=== PATIENT | male | born 1945 | race Caucasian/White ===

== ENCOUNTER 2019-07-25 13:36 | Emergency (ER) | payer BC, MEDICARE ==
[2019-07-25 14:01] VITALS: BP 142/73
[2019-07-25 14:12] LABS: Influenza A Molecular POSITIVE (Negative)
--- NOTE | 2019-07-25 14:18 | UC ---
General HPI - HPI Summary HPI Summary: Patient states yesterday he began with flu like symptoms. stiff, achy, runny nose cough. No CP or SOB. No N/V/D. No abdominal pain. No urinary s/s. No rash. Decrease appetite but good liquid intake. Dizzy but walking and driving without issue. Independent of ADLs. lives alone. Did get a flu shot meds: reviewed - History of Current Complaint Chief Complaint: UCGeneralIllness Stated Complaint: FLU SXS Time Seen by Provider: 07/25/19 13:51 Pain Intensity: 7 - Allergy/Home Medications Allergies/Adverse Reactions: Allergies Allergy/AdvReac Type Severity Reaction Status Date / Time No Known Allergies Allergy Verified 07/25/19 13:55 Home Medications: Home Medications Atorvastatin* [Lipitor*] 40 mg PO DAILY 07/25/19 [History Confirmed 07/25/19] Etodolac 2 tab PO BID 07/25/19 [History Confirmed 07/25/19] Oseltamivir CAP* [Tamiflu CAP*] 75 mg PO BID #10 cap 07/25/19 [Rx] PMH/Surg Hx/FS Hx/Imm Hx Previously Healthy: Yes - Surgical History Surgical History: Yes Surgery Procedure, Year, and Place: prostate. hernia x2 - Social History Alcohol Use: None Substance Use Type: None Smoking Status (MU): Never Smoked Tobacco Review of Systems All Other Systems Reviewed And Are Negative: Yes Constitutional: Positive: Fever, Chills ENT: Positive: Sore Throat, Sinus Congestion Respiratory: Positive: Cough Physical Exam Triage Information Reviewed: Yes Appearance: Well-Appearing Vital Signs: Initial Vital Signs Temp 99.7 F 07/25/19 13:56 Pulse 103 07/25/19 13:56 Resp 18 07/25/19 13:56 BP 142/73 07/25/19 13:56 Pulse Ox 97 07/25/19 13:56 ENT: Positive: Pharyngeal erythema, Nasal congestion, TMs normal Neck: Positive: Supple, Nontender Respiratory: Positive: Lungs clear, Normal breath sounds Cardiovascular: Positive: RRR, Other: - soft systolic murmur Course/Dx - Course Course Of Treatment: This is a 73 yr old with flu like symptoms Positive flu A nontoxic appearing no respiratory distress Recommend starting tamiflu as prescribed Rest,fluids and tylenol as directed as needed for pain/fever If symptoms persist or worsen, recommend follow up with PCP or return to urgent care - Diagnoses Provider Diagnosis: Influenza A Discharge ED - Sign-Out/Discharge Documenting (check all that apply): Patient Departure All imaging exams completed and their final reports reviewed: No Studies - Discharge Plan Condition: Fair Disposition: HOME Prescriptions: Oseltamivir CAP* [Tamiflu CAP*] 75 mg PO BID #10 cap Patient Education Materials: Influenza (ED) Referrals: Margaret Plaza MD [Primary Care Provider] - Additional Instructions: Recommend starting tamiflu as prescribed Rest,fluids and tylenol as directed as needed for pain/fever If symptoms persist or worsen, recommend follow up with PCP or return to urgent care - Billing Disposition and Condition Condition: FAIR Disposition: Home
== END 2019-07-25 14:23 | disposition home or self-care (01) ==
LOC: UCCORT 13:36
DX: J10.1 Influenza due to other identified influenza virus with other respiratory manifestations (principal)
CPT/HCPCS: 99202; G0463

== ENCOUNTER 2019-12-08 09:42 | Inpatient (IN) ==
[~2019-12-08 09:42] MED LIST: Buffered Lidocaine 1% SYRIN 1 ml INTRADERM ONE; Lactated Ringers 1000 ml BAG 1,000 ML IV SCH; Lidocaine 2% PF 5 ML VIAL ONE
[2019-12-08] MEDS ORDERED: ceFAZolin 2 GM PREMIX 2 GM/50 ML BAG ONE (10:19)
[2019-12-08] MEDS ORDERED: Buffered Lidocaine 1% SYRIN 1 ml INTRADERM ONE (10:19)
[2019-12-08] MEDS ORDERED: Midazolam 2 mg/2 ml VIAL 1 mg/ml 2 ml VIAL (2 mg) ONE ×2 (11:16→11:17)
[2019-12-08] MEDS ORDERED: Bupivacaine 0.5% SDV PF 30ML VIAL ONE (11:50)
[2019-12-08] MEDS ORDERED: Ondansetron 4 mg VIAL 2 MG/ML 2 ml VIAL ONE (12:12)
[2019-12-08] MEDS ORDERED: Dexamethasone IV 4 MG/ML VIAL 1 ml VIAL ONE (12:12)
[2019-12-08] MEDS ORDERED: EPHEDrine (Pressors) 50 MG/ML VIAL ONE (13:10)
[2019-12-08] MEDS ORDERED: Sterile Water for Inj 10 ML ONE (13:10)
[2019-12-08] MEDS ORDERED: Ondansetron 4 mg VIAL 2 MG/ML 2 ml VIAL IV PRN (13:44)
[2019-12-08] MEDS ORDERED: Lactulose 30 ml UDC PO PRN (13:44)
[2019-12-08] MEDS ORDERED: oxyCODONE/Acetamin 5/325 mg TAB PO PRN (13:44)
[2019-12-08] MEDS ORDERED: Ondansetron ODT 4 mg TAB 4 MG TAB PO PRN (13:44)
[2019-12-08] MEDS ORDERED: diPHENhydraMINE 25 mg TAB PO PRN (13:44)
[2019-12-08] MEDS ORDERED: diPHENhydraMINE IV 50 MG/ML 1 ml VIAL (BENADRYL) IV PRN (13:44)
[2019-12-08] MEDS ORDERED: Magnesium Hydroxide LIQ 30 ML UDC PO PRN (13:44)
[2019-12-08] MEDS ORDERED: Naloxone 0.4 mg VIAL 0.4 mg/ml 1 ml VIAL IV PRN ×2 (15:55)
[2019-12-08] MEDS ORDERED: fentaNYL 100 mcg/2 ml 50 MCG/ML VIAL IV PRN (15:55)
[2019-12-08] MEDS ORDERED: oxyCODONE/Acetamin 5/325 mg TAB ONE (16:18)
[2019-12-08] MEDS: Lactated Ringers 1000 ml BAG 1,000 ML IV SCH (16:53)
[2019-12-08] MEDS ORDERED: NS 0.9% 1000 ML/HR X 1 BAG (TOTAL 1000 ML) IV ONE (19:30)
[2019-12-08] MEDS: ceFAZolin 1 GM ADVAN 1 GM in NS 0.9% 50 ML 50 ML IVPB SCH (21:00)
[2019-12-08] MEDS: Magnesium Hydroxide LIQ 30 ML UDC PO SCH (21:00)
[2019-12-08] MEDS: oxyCODONE/Acetamin 5/325 mg TAB PO PRN (22:34)
[2019-12-09] MEDS: oxyCODONE/Acetamin 5/325 mg TAB PO PRN ×3 (02:10→12:40)
[2019-12-09] MEDS: ceFAZolin 1 GM ADVAN 1 GM in NS 0.9% 50 ML 50 ML IVPB SCH ×2 (03:53→11:31)
[2019-12-09] MEDS: Lactated Ringers 1000 ml BAG 1,000 ML IV SCH (03:53)
[2019-12-09 05:12] LABS: Hematocrit 38 % (42-52); Hemoglobin 12.8 g/dL (14.0-18.0); Mean Platelet Volume 7.4 fL (7.4-10.4); Platelet Count 171 10^3/uL (150-450)
[2019-12-09 05:29] LABS: BUN/Creatinine Ratio 26.3 (8-20); Calcium 7.9 mg/dL (8.6-10.3); EGFR African American 121.6 (>60); EGFR Non-African American 100.5 (>60)
[2019-12-09] MEDS: Magnesium Hydroxide LIQ 30 ML UDC PO SCH (08:15)
[2019-12-09] MEDS ORDERED: Vitamin THERAPEUTIC TAB PO SCH (09:00)
[2019-12-09 13:04] VITALS: BP 115/64
== END 2019-12-09 14:00 | disposition home or self-care (01) | DRG 470 ==
LOC: AA 09:42 → SSU 13:44
PROVIDERS: ADMIT Orthopaedic Surgery Adult Reconstructive Orthopaedic Surgery; ATTEND Orthopaedic Surgery Adult Reconstructive Orthopaedic Surgery

== ENCOUNTER 2020-03-01 10:20 | Observation (INO) ==
[~2020-03-01 10:20] MED LIST changes: -Lidocaine 2% PF 5 ML VIAL ONE
[2020-03-01] MEDS ORDERED: ceFAZolin 2 GM PREMIX 2 GM/50 ML BAG ONE (10:47)
[2020-03-01] MEDS ORDERED: fentaNYL 100 mcg/2 ml 50 MCG/ML VIAL ONE (11:02)
[2020-03-01] MEDS ORDERED: Phenylephrine 40 mcg/mL 10mL (400mcg) SYRINGE ONE ×2 (14:03→15:32)
[2020-03-01] MEDS ORDERED: Ondansetron ODT 4 mg TAB 4 MG TAB PO PRN (14:28)
[2020-03-01] MEDS ORDERED: Lactulose 30 ml UDC PO PRN (14:28)
[2020-03-01] MEDS ORDERED: diPHENhydraMINE IV 50 MG/ML 1 ml VIAL (BENADRYL) IV PRN (14:28)
[2020-03-01] MEDS ORDERED: diPHENhydraMINE 25 mg TAB PO PRN (14:28)
[2020-03-01] MEDS ORDERED: Morphine 2 MG/ML SYRINGE IV PRN (14:28)
[2020-03-01] MEDS ORDERED: oxyCODONE/Acetamin 5/325 mg TAB PO PRN (14:28)
[2020-03-01] MEDS ORDERED: Magnesium Hydroxide LIQ 30 ML UDC PO PRN (14:28)
[2020-03-01] MEDS ORDERED: Ondansetron 4 mg VIAL 2 MG/ML 2 ml VIAL IV PRN (14:28)
[2020-03-01] MEDS ORDERED: fentaNYL 100 mcg/2 ml 50 MCG/ML VIAL IV PRN (15:32)
[2020-03-01] MEDS ORDERED: Naloxone 0.4 mg VIAL 0.4 mg/ml 1 ml VIAL IV PRN (15:32)
[2020-03-01] MEDS ORDERED: DiMENhydriNATE IV 50 mg/ml 1 ml VIAL IV PUSH PRN (15:32)
[2020-03-01] MEDS ORDERED: EPHEDrine (Pressors) 50 MG/ML VIAL ONE (15:32)
[2020-03-01] MEDS ORDERED: Propofol 10 MG/ML 20 ML BTL ONE (15:35)
[2020-03-01] MEDS: Lactated Ringers 1000 ml BAG 1,000 ML IV SCH (17:44)
[2020-03-01] MEDS: oxyCODONE/Acetamin 5/325 mg TAB PO PRN (19:08)
[2020-03-01] MEDS: Magnesium Hydroxide LIQ 30 ML UDC PO SCH (20:47)
[2020-03-01] MEDS: ceFAZolin 1 GM ADVAN 1 GM in NS 0.9% 50 ML 50 ML IVPB SCH (22:22)
[2020-03-02] MEDS ORDERED: Polyethylene Glycol 3350 17 GM PACKET PO PRN (00:01)
[2020-03-02] MEDS: Lactated Ringers 1000 ml BAG 1,000 ML IV SCH ×2 (03:43→15:01)
[2020-03-02] MEDS: ceFAZolin 1 GM ADVAN 1 GM in NS 0.9% 50 ML 50 ML IVPB SCH ×2 (06:00→13:11)
[2020-03-02] MEDS: oxyCODONE/Acetamin 5/325 mg TAB PO PRN ×2 (06:04→20:27)
[2020-03-02 06:26] LABS: Hematocrit 37 % (42-52); Hemoglobin 12.2 g/dL (14.0-18.0); Mean Platelet Volume 7.5 fL (7.4-10.4); Platelet Count 164 10^3/uL (150-450)
[2020-03-02 06:57] LABS: Calcium 7.9 mg/dL (8.6-10.3); EGFR African American 138.3 (>60); EGFR Non-African American 114.3 (>60); Potassium 4.1 mmol/L (3.5-5.0)
[2020-03-02] MEDS: Vitamin THERAPEUTIC TAB PO SCH (08:34)
[2020-03-02] MEDS: Magnesium Hydroxide LIQ 30 ML UDC PO SCH ×2 (08:34→20:28)
[2020-03-02] MEDS ORDERED: NS 0.9% 500 ml BAG 500 ML IV ONE (14:53)
[2020-03-03] MEDS: Lactated Ringers 1000 ml BAG 1,000 ML IV SCH (03:14)
[2020-03-03 05:00] LABS: Hematocrit 32 % (42-52); Hemoglobin 10.8 g/dL (14.0-18.0); Mean Platelet Volume 7.6 fL (7.4-10.4); Platelet Count 130 10^3/uL (150-450)
[2020-03-03] MEDS: Vitamin THERAPEUTIC TAB PO SCH (08:15)
[2020-03-03] MEDS: Magnesium Hydroxide LIQ 30 ML UDC PO SCH (08:15)
[2020-03-03 12:04] VITALS: BP 107/56
== END 2020-03-03 14:25 | disposition home or self-care (01) ==
LOC: AA 10:20 → INTOOBSV 10:20 → SSU 14:28
PROVIDERS: ADMIT Orthopaedic Surgery Adult Reconstructive Orthopaedic Surgery; ATTEND Orthopaedic Surgery Adult Reconstructive Orthopaedic Surgery